=== PATIENT | male | born 1970 | race Caucasian/White ===

== ENCOUNTER 2019-03-08 12:56 | Inpatient (IN) | payer MEDICAID, OTHER ==
[~2019-03-08] VITALS: Ht 177.8 cm; Wt 99.8 kg
[~2019-03-08 12:56] MED LIST: AMBILIFY
[2019-03-08 13:45] LABS: BASOPHILS % (AUTO) 1.3 % (0.0-2.0); EOSINOPHILS % (AUTO) 1.8 % (1.0-6.0); HEMATOCRIT 40.8 % (41-53); LYMPHOCYTES # (AUTO) 2.9 K/uL (1.0-4.8); LYMPHOCYTES % (AUTO) 22.8 % (22.0-44.0); MEAN CORPUSCULAR HEMOGLOBIN 27.9 pg (26.0-34.0); MEAN CORPUSCULAR HGB CONC 34.2 G/dL (31.0-37.0); MEAN CORPUSCULAR VOLUME 81 fL (80-100); MONOCYTES # (AUTO) 1.2 K/uL (0.1-1.0); MONOCYTES % (AUTO) 9.3 % (2.0-9.0); NEUTROPHILS # (AUTO) 8.3 K/uL (1.8-7.7); NEUTROPHILS % (AUTO) 64.8 % (40.0-70.0); PLATELET COUNT (AUTO) 559 K/uL (150-450); RED BLOOD CELL COUNT(AUTO) 5.01 MIL/uL (4.50-5.90); RED CELL DISTRIBUTION WIDTH 13.6 % (11.5-14.5)
[2019-03-08] MEDS ORDERED: HALOPERIDOL 5 MG TABLET PO ONE (13:45)
[2019-03-08 13:53] LABS: ANION GAP 13 mmol/L (8-16); CARBON DIOXIDE 23 mmol/L (22-29); CHLORIDE 101 mmol/L (98-107); CREATININE 0.78 mg/dL (0.60-1.30); GLOMERULAR FILTR. RATE CALC > 60 mL/min (>60); GLUCOSE,RANDOM 106 mg/dL (70-110); POTASSIUM 3.4 mmol/L (3.5-5.1); SODIUM SERUM 137 mmol/L (136-145); UREA NITROGEN, BLOOD 9 mg/dL (7-18)
[2019-03-08 13:59] LABS: ALANINE AMINOTRANSFERASE 39 U/L (12-78); ALBUMIN 4.1 g/dL (3.4-5.0); ALKALINE PHOSPHATASE 54 U/L (46-116); ASPARTATE AMINOTRANSFERASE 19 U/L (15-37); BILIRUBIN,TOTAL 0.8 mg/dL (0.1-1.0); TOTAL PROTEIN, SERUM 7.9 g/dL (6.4-8.2)
[2019-03-08] MEDS ORDERED: IBUPROFEN 400 MG TABLET PO PRN ×2 (15:00→21:15)
[2019-03-08] MEDS ORDERED: HALOPERIDOL 5 MG TABLET PO PRN (15:00)
[2019-03-08] MEDS ORDERED: ZOLPIDEM TARTRATE 10 MG TABLET PO PRN (15:00)
[2019-03-08] MEDS ORDERED: ACETAMINOPHEN 325 MG TABLET PO PRN (15:00)
[2019-03-08] MEDS ORDERED: LORazepam 2 MG TABLET PO PRN (15:00)
[2019-03-08 17:42] LABS: AMPHET/METH SCREEN,URINE NEGATIVE (NEGATIVE); BARBITURATE SCREEN, URINE NEGATIVE (NEGATIVE); BENZODIAZEPINES SCREEN,URINE NEGATIVE (NEGATIVE); CANNABINOID SCREEN,URINE NEGATIVE (NEGATIVE); COCAINE SCREEN,URINE NEGATIVE (NEGATIVE); METHADONE SCREEN, URINE NEGATIVE (NEGATIVE); OPIATE SCREEN,URINE NEGATIVE (NEGATIVE)
[2019-03-08 17:49] LABS: PHENCYCLIDINE SCREEN,URINE NEGATIVE (NEGATIVE)
[2019-03-08 18:57] VITALS: BP 117/77
[2019-03-08] MEDS ORDERED: ONDANSETRON HCL 4 MG TABLET PO PRN (21:15)
[2019-03-08] MEDS ORDERED: ALBUTEROL SULFATE HFA 90 MCG/PUFF 8 GM INHALER IH PRN (21:15)
[2019-03-08] MEDS ORDERED: CloNIDine HCL 0.1 MG TABLET PO PRN (21:15)
[2019-03-08] MEDS ORDERED: DOCUSATE SODIUM 100 MG CAPSULE PO PRN (21:15)
[2019-03-08] MEDS ORDERED: NICOTINE 14 MG/24 HOUR PATCH TD PRN (21:15)
[2019-03-08] MEDS ORDERED: PETROLATUM,WHITE 28 GM JELLY TP PRN (21:15)
[2019-03-08] MEDS ORDERED: GuaiFENesin/D-METHORPHAN [SUGAR-FREE] 200-20MG/10 ML SYRUP UDCUP PO PRN (21:15)
[2019-03-08] MEDS ORDERED: LOPERAMIDE HCL 2 MG CAPSULE PO PRN (21:15)
[2019-03-08] MEDS ORDERED: MAGNESIUM HYDROXIDE SUSPENSION 30 ML UDCUP PO PRN (21:15)
[2019-03-08] MEDS ORDERED: MAG HYDROX/AL HYDROX/SIMETH ES 30 ML SUSPENSION UDCUP PO PRN (21:15)
[2019-03-09 05:35] VITALS: BP 124/85
[2019-03-09 08:08] LABS: BASOPHILS % (AUTO) 1.3 % (0.0-2.0); EOSINOPHILS % (AUTO) 4.8 % (1.0-6.0); HEMATOCRIT 38.7 % (41-53); HEMOGLOBIN 13.3 g/dL (13.5-17.5); LYMPHOCYTES # (AUTO) 3.2 K/uL (1.0-4.8); MEAN CORPUSCULAR HEMOGLOBIN 27.9 pg (26.0-34.0); MEAN CORPUSCULAR HGB CONC 34.3 G/dL (31.0-37.0); MEAN CORPUSCULAR VOLUME 82 fL (80-100); MONOCYTES # (AUTO) 1.2 K/uL (0.1-1.0); MONOCYTES % (AUTO) 10.4 % (2.0-9.0); NEUTROPHILS # (AUTO) 6.6 K/uL (1.8-7.7); NEUTROPHILS % (AUTO) 56.5 % (40.0-70.0); PLATELET COUNT (AUTO) 542 K/uL (150-450); RED BLOOD CELL COUNT(AUTO) 4.75 MIL/uL (4.50-5.90); RED CELL DISTRIBUTION WIDTH 13.8 % (11.5-14.5)
[2019-03-09 08:30] VITALS: BP 124/74
[2019-03-09 08:33] LABS: HEMOGLOBIN A1C 5.4 % (4.5-6.2)
[2019-03-09 08:48] LABS: ALANINE AMINOTRANSFERASE 33 U/L (12-78); ALBUMIN 3.8 g/dL (3.4-5.0); ALKALINE PHOSPHATASE 46 U/L (46-116); ANION GAP 10 mmol/L (8-16); ASPARTATE AMINOTRANSFERASE 15 U/L (15-37); BILIRUBIN,TOTAL 0.8 mg/dL (0.1-1.0); CALCIUM, TOTAL 9.1 mg/dL (8.8-10.5); CARBON DIOXIDE 27 mmol/L (22-29); CHLORIDE 103 mmol/L (98-107); CHOL/HDL RATIO 3.5 (4.2-7.3); CHOLESTEROL 129 mg/dL (131-200); CREATININE 0.82 mg/dL (0.60-1.30); GLOMERULAR FILTR. RATE CALC > 60 mL/min (>60); GLUCOSE,RANDOM 93 mg/dL (70-110); HDL CHOLESTEROL 37 mg/dL (40-60); LDL CHOL (CALC.) 79 mg/dL (0-130); POTASSIUM 3.8 mmol/L (3.5-5.1); SODIUM SERUM 140 mmol/L (136-145); THYROID STIMULATING HORMONE 1.92 uIU/mL (0.36-3.74); TOTAL PROTEIN, SERUM 6.8 g/dL (6.4-8.2); TRIGLYCERIDES 66 mg/dL (15-150); UREA NITROGEN, BLOOD 8 mg/dL (7-18)
[2019-03-09 16:00] VITALS: BP 122/79
[2019-03-09] MEDS: RisperiDONE 2 MG TABLET PO SCH (17:01)
[2019-03-10 01:50] VITALS: BP 123/75
[2019-03-10 08:19] VITALS: BP 125/73
[2019-03-10] MEDS: RisperiDONE 2 MG TABLET PO SCH ×2 (08:55→16:01)
[2019-03-10 16:16] VITALS: BP 118/70
[2019-03-11 08:22] VITALS: BP 140/72
[2019-03-11] MEDS: RisperiDONE 2 MG TABLET PO SCH (09:02)
[2019-03-11 16:30] VITALS: BP 128/75
[2019-03-11] MEDS: RisperiDONE 4 MG TABLET PO SCH (20:25)
[2019-03-12 08:00] VITALS: BP 131/77
[2019-03-12] MEDS: RisperiDONE 2 MG TABLET PO SCH (09:10)
[2019-03-12 16:00] VITALS: BP 118/78
[2019-03-12] MEDS: RisperiDONE 4 MG TABLET PO SCH (20:21)
[2019-03-13 00:54] VITALS: BP 121/75
[2019-03-13 08:30] VITALS: BP 118/68
[2019-03-13] MEDS: RisperiDONE 2 MG TABLET PO SCH (09:45)
[2019-03-13 16:55] VITALS: BP 115/73
[2019-03-13] MEDS: RisperiDONE 4 MG TABLET PO SCH (20:26)
[2019-03-14 08:10] LABS: BASOPHILS % (AUTO) 0.9 % (0.0-2.0); HEMATOCRIT 37.1 % (41-53); HEMOGLOBIN 12.8 g/dL (13.5-17.5); LYMPHOCYTES # (AUTO) 3.6 K/uL (1.0-4.8); LYMPHOCYTES % (AUTO) 25.9 % (22.0-44.0); MEAN CORPUSCULAR HEMOGLOBIN 28.6 pg (26.0-34.0); MEAN CORPUSCULAR HGB CONC 34.6 G/dL (31.0-37.0); MEAN CORPUSCULAR VOLUME 83 fL (80-100); MONOCYTES # (AUTO) 1.1 K/uL (0.1-1.0); MONOCYTES % (AUTO) 8.1 % (2.0-9.0); NEUTROPHILS # (AUTO) 8.4 K/uL (1.8-7.7); NEUTROPHILS % (AUTO) 60.1 % (40.0-70.0); PLATELET COUNT (AUTO) 516 K/uL (150-450); RED BLOOD CELL COUNT(AUTO) 4.49 MIL/uL (4.50-5.90); RED CELL DISTRIBUTION WIDTH 13.9 % (11.5-14.5)
[2019-03-14] MEDS: RisperiDONE 2 MG TABLET PO SCH (09:08)
[2019-03-14 10:39] VITALS: BP 109/68
[2019-03-14 16:00] VITALS: BP 139/80
[2019-03-14] MEDS: RisperiDONE 4 MG TABLET PO SCH (20:37)
[2019-03-15 08:22] VITALS: BP 118/73
[2019-03-15] MEDS: MULTIVITAMINS WITH MINERALS, THERAPEUTIC TABLET PO SCH (09:16)
[2019-03-15] MEDS: RisperiDONE 2 MG TABLET PO SCH (09:16)
[2019-03-15] MEDS ORDERED: RISP4 PO (11:21)
[2019-03-15] MEDS ORDERED: RISP2 PO (11:21)
[2019-03-15 16:00] VITALS: BP 120/66
[2019-03-15] MEDS: RisperiDONE 4 MG TABLET PO SCH (20:16)
[2019-03-16 06:04] VITALS: BP 132/78
[2019-03-16] MEDS: RisperiDONE 2 MG TABLET PO SCH (08:34)
[2019-03-16] MEDS: MULTIVITAMINS WITH MINERALS, THERAPEUTIC TABLET PO SCH (08:34)
[2019-03-16 08:36] VITALS: BP 121/69
[2019-03-16 16:13] VITALS: BP 122/75
[2019-03-16] MEDS: RisperiDONE 4 MG TABLET PO SCH (21:21)
[2019-03-17 03:32] VITALS: BP 116/71
[2019-03-17] MEDS: FERROUS SULFATE 325 MG EC TABLET PO SCH ×3 (07:11→16:09)
[2019-03-17] MEDS: RisperiDONE 2 MG TABLET PO SCH (08:32)
[2019-03-17] MEDS: MULTIVITAMINS WITH MINERALS, THERAPEUTIC TABLET PO SCH (08:32)
[2019-03-17 08:52] VITALS: BP 137/79
[2019-03-17 16:24] VITALS: BP 113/70
[2019-03-17] MEDS: RisperiDONE 4 MG TABLET PO SCH (20:14)
[2019-03-18 01:32] VITALS: BP 123/70
[2019-03-18] MEDS: FERROUS SULFATE 325 MG EC TABLET PO SCH ×3 (07:08→16:13)
[2019-03-18 07:52] LABS: EOSINOPHILS % (AUTO) 5.4 % (1.0-6.0); HEMATOCRIT 37.1 % (41-53); HEMOGLOBIN 12.5 g/dL (13.5-17.5); LYMPHOCYTES # (AUTO) 3.8 K/uL (1.0-4.8); MEAN CORPUSCULAR HGB CONC 33.6 G/dL (31.0-37.0); MEAN CORPUSCULAR VOLUME 83 fL (80-100); MONOCYTES # (AUTO) 1.5 K/uL (0.1-1.0); MONOCYTES % (AUTO) 10.2 % (2.0-9.0); NEUTROPHILS # (AUTO) 8.5 K/uL (1.8-7.7); NEUTROPHILS % (AUTO) 57.4 % (40.0-70.0); PLATELET COUNT (AUTO) 490 K/uL (150-450); RED BLOOD CELL COUNT(AUTO) 4.45 MIL/uL (4.50-5.90); RED CELL DISTRIBUTION WIDTH 13.9 % (11.5-14.5)
[2019-03-18] MEDS: RisperiDONE 2 MG TABLET PO SCH (08:32)
[2019-03-18] MEDS: MULTIVITAMINS WITH MINERALS, THERAPEUTIC TABLET PO SCH (08:32)
[2019-03-18 08:46] VITALS: BP 125/75
[2019-03-18 16:12] VITALS: BP 115/68
[2019-03-18] MEDS: RisperiDONE 4 MG TABLET PO SCH (21:05)
[2019-03-19 00:22] VITALS: BP 116/74
[2019-03-19] MEDS: ACETAMINOPHEN 325 MG TABLET PO PRN (05:49)
[2019-03-19] MEDS: FERROUS SULFATE 325 MG EC TABLET PO SCH ×3 (06:57→16:57)
[2019-03-19 08:17] LABS: APPEARANCE,URINE CLEAR (CLEAR); BILIRUBIN,URINE NEGATIVE (NEGATIVE); GLUCOSE, URINE (UA) NEGATIVE (NEGATIVE); KETONES,URINE NEGATIVE (NEGATIVE); LEUKOCYTE ESTERASE ,URINE NEGATIVE (NEGATIVE); NITRATE,URINE NEGATIVE (NEGATIVE); OCCULT BLOOD,URINE NEGATIVE (NEGATIVE); PROTEIN,URINE NEGATIVE (NEGATIVE); UROBILINOGEN,URINE 0.2 mg/dL (<=1.0)
[2019-03-19 09:07] VITALS: BP 134/74
[2019-03-19] MEDS: MULTIVITAMINS WITH MINERALS, THERAPEUTIC TABLET PO SCH (09:17)
[2019-03-19] MEDS: RisperiDONE 2 MG TABLET PO SCH (09:17)
[2019-03-19 16:09] VITALS: BP 106/64
[2019-03-19] MEDS: RisperiDONE 4 MG TABLET PO SCH (20:31)
[2019-03-20 00:05] VITALS: BP 134/84
[2019-03-20] MEDS: ACETAMINOPHEN 325 MG TABLET PO PRN (00:09)
[2019-03-20] MEDS: FERROUS SULFATE 325 MG EC TABLET PO SCH ×2 (07:04→12:05)
[2019-03-20 08:13] VITALS: BP 112/72
[2019-03-20] MEDS: MULTIVITAMINS WITH MINERALS, THERAPEUTIC TABLET PO SCH (09:15)
[2019-03-20] MEDS: RisperiDONE 2 MG TABLET PO SCH (09:15)
[2019-03-20] MEDS ORDERED: FERR-89 PO (10:48)
== END 2019-03-20 15:20 | disposition home or self-care (01) | DRG 750 ==
LOC: EMS 12:58 → B3A 16:22 → B2S 03-16 16:54
PROVIDERS: ADMIT Psychiatry & Neurology Child & Adolescent Psychiatry; ATTEND Psychiatry & Neurology Child & Adolescent Psychiatry
DX: F20.0 Paranoid schizophrenia (principal); Z59.0 Homelessness; D64.9 Anemia, unspecified; D72.829 Elevated white blood cell count, unspecified; E87.6 Hypokalemia; F41.9 Anxiety disorder, unspecified; R45.87 Impulsiveness; R41.843 Psychomotor deficit; Z88.0 Allergy status to penicillin
CPT/HCPCS: 83036; 84443; G0480

== ENCOUNTER 2022-04-27 17:24 | Inpatient (IN) | payer MEDICARE, OTHER ==
[~2022-04-27] VITALS: Ht 172.7 cm; Wt 99.6 kg
[~2022-04-27 17:24] MED LIST changes: -AMBILIFY; +FERR325T27 PO; +RISP2TAB45 PO; +RISP4TAB73 PO
[2022-04-27 18:04] LABS: BASOPHILS % (AUTO) 0.9 % (0.0-2.0); EOSINOPHILS % (AUTO) 0.1 % (1.0-6.0); HEMATOCRIT 43.2 % (41-53); HEMOGLOBIN 14.2 g/dL (13.5-17.5); LYMPHOCYTES # (AUTO) 1.8 K/uL (1.0-4.8); LYMPHOCYTES % (AUTO) 7.3 % (22.0-44.0); MEAN CORPUSCULAR HEMOGLOBIN 27.4 pg (26.0-34.0); MEAN CORPUSCULAR HGB CONC 32.9 G/dL (31.0-37.0); MEAN CORPUSCULAR VOLUME 83 fL (80-100); MONOCYTES # (AUTO) 2.6 K/uL (0.1-1.0); MONOCYTES % (AUTO) 10.3 % (2.0-9.0); NEUTROPHILS # (AUTO) 20.4 K/uL (1.8-7.7); NEUTROPHILS % (AUTO) 81.4 % (40.0-70.0); PLATELET COUNT (AUTO) 426 K/uL (150-450); RED CELL DISTRIBUTION WIDTH 13.4 % (11.5-14.5)
[2022-04-27 18:10] LABS: ANION GAP 17 mmol/L (8-16); CALCIUM, TOTAL 9.2 mg/dL (8.8-10.5); CARBON DIOXIDE 21 mmol/L (22-29); CHLORIDE 101 mmol/L (98-107); CREATININE 2.55 mg/dL (0.60-1.30); GLOMERULAR FILTR. RATE CALC 26 mL/min (>60); GLUCOSE,RANDOM 95 mg/dL (70-110); POTASSIUM 3.3 mmol/L (3.5-5.1); SODIUM SERUM 139 mmol/L (136-145); UREA NITROGEN, BLOOD 61 mg/dL (7-18)
[2022-04-27 18:34] LABS: ALANINE AMINOTRANSFERASE 57 U/L (12-78); ALBUMIN 4.5 g/dL (3.4-5.0); ALKALINE PHOSPHATASE 46 U/L (46-116); ASPARTATE AMINOTRANSFERASE 119 U/L (15-37); BILIRUBIN,TOTAL 2.2 mg/dL (0.1-1.0); CREATINE KINASE, TOTAL ONLY 3886 U/L (39-308); TOTAL PROTEIN, SERUM 8.2 g/dL (6.4-8.2)
[2022-04-27] MEDS ORDERED: SODIUM CHLORIDE 0.9% 1,000 ML IV ONE (19:30)
[2022-04-27 20:30] VITALS: BP 131/77
[2022-04-27] MEDS ORDERED: CefTRIAXone 1 GM/DEXTROSE 50 ML IV ONE (20:45)
[2022-04-27] MEDS ORDERED: ONDANSETRON HCL 4 MG/2 ML VIAL IVP PRN (20:45)
[2022-04-27] MEDS ORDERED: SODIUM CHLORIDE 0.9% 3,050 ML IV ONE (20:45)
[2022-04-27 22:06] LABS: COVID AG,FIA SOURCE NASOPHARYNGEAL
[2022-04-27 22:22] LABS: CREATININE,URINE RANDOM 261.1 mg/dL (30.0-125.0)
[2022-04-27 22:27] LABS: AMPHET/METH SCREEN,URINE NEGATIVE (NEGATIVE); BARBITURATE SCREEN, URINE NEGATIVE (NEGATIVE); BENZODIAZEPINES SCREEN,URINE NEGATIVE (NEGATIVE); CANNABINOID SCREEN,URINE NEGATIVE (NEGATIVE); COCAINE SCREEN,URINE NEGATIVE (NEGATIVE); METHADONE SCREEN, URINE NEGATIVE (NEGATIVE); OPIATE SCREEN,URINE NEGATIVE (NEGATIVE)
[2022-04-27 22:29] LABS: PHENCYCLIDINE SCREEN,URINE NEGATIVE (NEGATIVE)
[2022-04-28 00:40] VITALS: BP 125/72
[2022-04-28] MEDS: HEPARIN SODIUM,PORCINE 5,000 UNITS/ML VIAL SQ SCH ×3 (00:47→15:25)
[2022-04-28] MEDS: SODIUM CHLORIDE 0.9% 1,000 ML IV SCH ×3 (04:04→19:53)
[2022-04-28 04:35] VITALS: BP 132/81
[2022-04-28] MEDS ORDERED: LevETIRAcetam 1,000 MG in DEXTROSE 5%-WATER 100 ML IV ONE (06:00)
[2022-04-28 06:35] LABS: BASOPHILS % (AUTO) 0.9 % (0.0-2.0); EOSINOPHILS % (AUTO) 0.3 % (1.0-6.0); HEMATOCRIT 39.6 % (41-53); HEMOGLOBIN 13.3 g/dL (13.5-17.5); LYMPHOCYTES # (AUTO) 2.7 K/uL (1.0-4.8); LYMPHOCYTES % (AUTO) 13.8 % (22.0-44.0); MEAN CORPUSCULAR HGB CONC 33.7 G/dL (31.0-37.0); MEAN CORPUSCULAR VOLUME 83 fL (80-100); MONOCYTES % (AUTO) 10.4 % (2.0-9.0); NEUTROPHILS # (AUTO) 14.4 K/uL (1.8-7.7); NEUTROPHILS % (AUTO) 74.6 % (40.0-70.0); PLATELET COUNT (AUTO) 411 K/uL (150-450); RED BLOOD CELL COUNT(AUTO) 4.77 MIL/uL (4.50-5.90); RED CELL DISTRIBUTION WIDTH 13.5 % (11.5-14.5)
[2022-04-28] MEDS: CefTRIAXone 1 GM/DEXTROSE 50 ML IV SCH (07:03)
[2022-04-28 07:15] LABS: ANION GAP 12 mmol/L (8-16); CALCIUM, TOTAL 8.5 mg/dL (8.8-10.5); CARBON DIOXIDE 25 mmol/L (22-29); CHLORIDE 106 mmol/L (98-107); CREATININE 1.12 mg/dL (0.60-1.30); GLUCOSE,RANDOM 97 mg/dL (70-110); POTASSIUM 3.4 mmol/L (3.5-5.1); SODIUM SERUM 143 mmol/L (136-145); UREA NITROGEN, BLOOD 43 mg/dL (7-18)
[2022-04-28 07:18] LABS: CREATINE KINASE, TOTAL ONLY 1495 U/L (39-308); GLOMERULAR FILTR. RATE CALC > 60 mL/min (>60)
[2022-04-28 07:22] VITALS: BP 129/76
[2022-04-28 11:42] VITALS: BP 122/78
[2022-04-28 15:30] VITALS: BP 139/69
[2022-04-28 20:07] VITALS: BP 136/82
[2022-04-28] MEDS: LevETIRAcetam 500 MG in DEXTROSE 5%-WATER 100 ML IV SCH (20:35)
[2022-04-29 00:10] VITALS: BP 146/89
[2022-04-29] MEDS: HEPARIN SODIUM,PORCINE 5,000 UNITS/ML VIAL SQ SCH ×4 (00:23→23:37)
[2022-04-29 04:22] VITALS: BP 133/76
[2022-04-29] MEDS: SODIUM CHLORIDE 0.9% 1,000 ML IV SCH ×2 (04:53→15:40)
[2022-04-29] MEDS: CefTRIAXone 1 GM/DEXTROSE 50 ML IV SCH (05:56)
[2022-04-29 06:20] LABS: EOSINOPHILS % (AUTO) 0.8 % (1.0-6.0); HEMATOCRIT 38.6 % (41-53); LYMPHOCYTES # (AUTO) 2.6 K/uL (1.0-4.8); LYMPHOCYTES % (AUTO) 16.4 % (22.0-44.0); MEAN CORPUSCULAR HEMOGLOBIN 27.9 pg (26.0-34.0); MEAN CORPUSCULAR HGB CONC 33.6 G/dL (31.0-37.0); MEAN CORPUSCULAR VOLUME 83 fL (80-100); MONOCYTES # (AUTO) 1.9 K/uL (0.1-1.0); MONOCYTES % (AUTO) 11.8 % (2.0-9.0); NEUTROPHILS # (AUTO) 11.2 K/uL (1.8-7.7); PLATELET COUNT (AUTO) 416 K/uL (150-450); RED BLOOD CELL COUNT(AUTO) 4.65 MIL/uL (4.50-5.90); RED CELL DISTRIBUTION WIDTH 13.3 % (11.5-14.5)
[2022-04-29 06:50] LABS: ANION GAP 11 mmol/L (8-16); CALCIUM, TOTAL 8.2 mg/dL (8.8-10.5); CARBON DIOXIDE 26 mmol/L (22-29); CHLORIDE 108 mmol/L (98-107); CREATININE 0.75 mg/dL (0.60-1.30); GLUCOSE,RANDOM 80 mg/dL (70-110); POTASSIUM 3.1 mmol/L (3.5-5.1); SODIUM SERUM 145 mmol/L (136-145)
[2022-04-29 07:04] LABS: UREA NITROGEN, BLOOD 22 mg/dL (7-18)
[2022-04-29 07:05] LABS: GLOMERULAR FILTR. RATE CALC > 60 mL/min (>60)
[2022-04-29 07:43] VITALS: BP 132/80
[2022-04-29] MEDS: LevETIRAcetam 500 MG in DEXTROSE 5%-WATER 100 ML IV SCH ×2 (08:42→19:58)
[2022-04-29 10:45] VITALS: BP 142/74
[2022-04-29] MEDS ORDERED: METR500 PO (12:04)
[2022-04-29] MEDS ORDERED: CIPR500T10 PO (12:04)
[2022-04-29] MEDS ORDERED: LEVE500T20 PO (12:04)
[2022-04-29 12:19] LABS: PLATELET MORPHOLOGY COMMENT GIANT PLTS PRESENT
[2022-04-29 15:20] VITALS: BP 142/72
[2022-04-29] MEDS: ACETAMINOPHEN 325 MG TABLET PO PRN (19:59)
[2022-04-29 20:00] VITALS: BP 128/72
[2022-04-29] MEDS ORDERED: ACETAMINOPHEN 650 MG RECTAL SUPPOSITORY PR PRN (22:30)
[2022-04-30] MEDS: SODIUM CHLORIDE 0.9% 1,000 ML IV SCH ×2 (03:36→20:02)
[2022-04-30 04:10] VITALS: BP 149/79
[2022-04-30] MEDS: CefTRIAXone 1 GM/DEXTROSE 50 ML IV SCH (05:22)
[2022-04-30] MEDS: ACETAMINOPHEN 325 MG TABLET PO PRN (06:04)
[2022-04-30 06:12] LABS: BASOPHILS % (AUTO) 0.9 % (0.0-2.0); EOSINOPHILS % (AUTO) 2.1 % (1.0-6.0); HEMATOCRIT 38.5 % (41-53); HEMOGLOBIN 13.1 g/dL (13.5-17.5); LYMPHOCYTES # (AUTO) 3.3 K/uL (1.0-4.8); LYMPHOCYTES % (AUTO) 22.3 % (22.0-44.0); MEAN CORPUSCULAR VOLUME 83 fL (80-100); MONOCYTES # (AUTO) 1.8 K/uL (0.1-1.0); MONOCYTES % (AUTO) 12.4 % (2.0-9.0); NEUTROPHILS # (AUTO) 9.1 K/uL (1.8-7.7); NEUTROPHILS % (AUTO) 62.3 % (40.0-70.0); PLATELET COUNT (AUTO) 375 K/uL (150-450); RED BLOOD CELL COUNT(AUTO) 4.67 MIL/uL (4.50-5.90); RED CELL DISTRIBUTION WIDTH 13.4 % (11.5-14.5)
[2022-04-30 06:18] LABS: ANION GAP 9 mmol/L (8-16); CALCIUM, TOTAL 8.2 mg/dL (8.8-10.5); CARBON DIOXIDE 27 mmol/L (22-29); CHLORIDE 105 mmol/L (98-107); CREATININE 0.68 mg/dL (0.60-1.30); GLUCOSE,RANDOM 86 mg/dL (70-110); SODIUM SERUM 141 mmol/L (136-145); UREA NITROGEN, BLOOD 14 mg/dL (7-18)
[2022-04-30 06:24] LABS: GLOMERULAR FILTR. RATE CALC > 60 mL/min (>60)
[2022-04-30 08:29] VITALS: BP 136/99
[2022-04-30] MEDS ORDERED: POTASSIUM CHLORIDE 20 MEQ ER TABLET PO PRN (09:00)
[2022-04-30] MEDS: LevETIRAcetam 500 MG in DEXTROSE 5%-WATER 100 ML IV SCH (09:22)
[2022-04-30] MEDS: HEPARIN SODIUM,PORCINE 5,000 UNITS/ML VIAL SQ SCH ×2 (09:22→15:19)
[2022-04-30] MEDS ORDERED: SODIUM CHLORIDE 0.9% 250 ML IV ONE (09:36)
[2022-04-30] MEDS: POTASSIUM CHL 10 MEQ/WATER 50 ML IV PRN ×4 (09:37→14:42)
[2022-04-30] MEDS ORDERED: BISACODYL 10 MG RECTAL RECTAL SUPPOSITORY PR PRN (13:45)
[2022-04-30] MEDS: CLINDAMYCIN 600 MG/D5% WATER 50 ML IV SCH (15:20)
[2022-04-30 15:58] VITALS: BP 141/86
[2022-04-30] MEDS: DOCUSATE SODIUM 100 MG CAPSULE PO SCH (20:04)
[2022-04-30 20:12] VITALS: BP 140/80
[2022-05-01] MEDS: CLINDAMYCIN 600 MG/D5% WATER 50 ML IV SCH ×4 (00:04→23:41)
[2022-05-01] MEDS: HEPARIN SODIUM,PORCINE 5,000 UNITS/ML VIAL SQ SCH ×4 (00:05→23:42)
[2022-05-01] MEDS: CefTRIAXone 1 GM/DEXTROSE 50 ML IV SCH (05:30)
[2022-05-01 06:01] VITALS: BP 132/79
[2022-05-01 06:10] LABS: BASOPHILS % (AUTO) 0.7 % (0.0-2.0); EOSINOPHILS % (AUTO) 2.4 % (1.0-6.0); HEMATOCRIT 40.2 % (41-53); HEMOGLOBIN 13.8 g/dL (13.5-17.5); LYMPHOCYTES # (AUTO) 2.8 K/uL (1.0-4.8); LYMPHOCYTES % (AUTO) 19.1 % (22.0-44.0); MEAN CORPUSCULAR HGB CONC 34.4 G/dL (31.0-37.0); MEAN CORPUSCULAR VOLUME 81 fL (80-100); MONOCYTES # (AUTO) 1.9 K/uL (0.1-1.0); MONOCYTES % (AUTO) 12.5 % (2.0-9.0); NEUTROPHILS # (AUTO) 9.8 K/uL (1.8-7.7); NEUTROPHILS % (AUTO) 65.3 % (40.0-70.0); PLATELET COUNT (AUTO) 356 K/uL (150-450); RED BLOOD CELL COUNT(AUTO) 4.95 MIL/uL (4.50-5.90); RED CELL DISTRIBUTION WIDTH 13.3 % (11.5-14.5)
[2022-05-01 06:22] LABS: ANION GAP 8 mmol/L (8-16); CALCIUM, TOTAL 8.5 mg/dL (8.8-10.5); CARBON DIOXIDE 25 mmol/L (22-29); CHLORIDE 102 mmol/L (98-107); CREATININE 0.67 mg/dL (0.60-1.30); GLUCOSE,RANDOM 92 mg/dL (70-110); POTASSIUM 3.5 mmol/L (3.5-5.1); SODIUM SERUM 135 mmol/L (136-145); UREA NITROGEN, BLOOD 9 mg/dL (7-18)
[2022-05-01 06:32] LABS: GLOMERULAR FILTR. RATE CALC > 60 mL/min (>60)
[2022-05-01 07:52] VITALS: BP 138/79
[2022-05-01] MEDS: DOCUSATE SODIUM 100 MG CAPSULE PO SCH ×2 (08:05→20:39)
[2022-05-01] MEDS: SODIUM CHLORIDE 0.9% 1,000 ML IV SCH ×2 (08:14→18:05)
[2022-05-01] MEDS ORDERED: MORPHINE SULFATE 2 MG/ML SYRINGE IVP PRN (12:30)
[2022-05-01 15:39] VITALS: BP 141/77
[2022-05-01 19:50] VITALS: BP 134/82
[2022-05-01] MEDS: MAALOX/LIDOCAINE/NYSTATIN SUSP 5 ML ORAL.SYG PO SCH (20:39)
[2022-05-02] MEDS: SODIUM CHLORIDE 0.9% 1,000 ML IV SCH ×2 (03:30→15:21)
[2022-05-02 04:15] VITALS: BP 143/84
[2022-05-02] MEDS: CefTRIAXone 1 GM/DEXTROSE 50 ML IV SCH (05:54)
[2022-05-02] MEDS: CLINDAMYCIN 600 MG/D5% WATER 50 ML IV SCH ×3 (06:53→23:21)
[2022-05-02 08:17] VITALS: BP 132/74
[2022-05-02] MEDS: MAALOX/LIDOCAINE/NYSTATIN SUSP 5 ML ORAL.SYG PO SCH ×2 (08:27→21:00)
[2022-05-02] MEDS: HEPARIN SODIUM,PORCINE 5,000 UNITS/ML VIAL SQ SCH ×3 (08:27→23:21)
[2022-05-02] MEDS: DOCUSATE SODIUM 100 MG CAPSULE PO SCH ×2 (08:27→21:00)
[2022-05-02 15:33] VITALS: BP 140/78
[2022-05-02 19:37] VITALS: BP 148/79
[2022-05-02] MEDS: FLUoxetine HCL 20 MG CAPSULE PO SCH (21:00)
[2022-05-02 21:08] VITALS: BP 141/80
[2022-05-03] MEDS: SODIUM CHLORIDE 0.9% 1,000 ML IV SCH ×2 (02:22→12:33)
[2022-05-03 05:25] VITALS: BP 141/76
[2022-05-03] MEDS: CefTRIAXone 1 GM/DEXTROSE 50 ML IV SCH (05:52)
[2022-05-03] MEDS: CLINDAMYCIN 600 MG/D5% WATER 50 ML IV SCH ×3 (06:35→23:07)
[2022-05-03] MEDS: DOCUSATE SODIUM 100 MG CAPSULE PO SCH ×2 (08:08→20:57)
[2022-05-03] MEDS: MAALOX/LIDOCAINE/NYSTATIN SUSP 5 ML ORAL.SYG PO SCH ×2 (08:08→20:57)
[2022-05-03] MEDS: HEPARIN SODIUM,PORCINE 5,000 UNITS/ML VIAL SQ SCH ×3 (08:27→23:07)
[2022-05-03 08:32] VITALS: BP 141/83
[2022-05-03] MEDS: ASPIRIN 81 MG CHEWABLE TABLET PO SCH (13:00)
[2022-05-03 14:44] LABS: CHOL/HDL RATIO 3.4 (4.2-7.3)
[2022-05-03 16:27] VITALS: BP 127/76
[2022-05-03 19:27] VITALS: BP 140/80
[2022-05-03] MEDS: FLUoxetine HCL 20 MG CAPSULE PO SCH (20:57)
[2022-05-03] MEDS: ATORVASTATIN CALCIUM 20 MG TABLET PO SCH (20:57)
[2022-05-04] MEDS: SODIUM CHLORIDE 0.9% 1,000 ML IV SCH ×3 (04:20→17:40)
[2022-05-04 04:22] VITALS: BP 146/82
[2022-05-04] MEDS: CefTRIAXone 1 GM/DEXTROSE 50 ML IV SCH (05:25)
[2022-05-04] MEDS: CLINDAMYCIN 600 MG/D5% WATER 50 ML IV SCH ×3 (06:29→23:33)
[2022-05-04 07:49] VITALS: BP 140/18
[2022-05-04] MEDS: ASPIRIN 81 MG CHEWABLE TABLET PO SCH (08:00)
[2022-05-04] MEDS: DOCUSATE SODIUM 100 MG CAPSULE PO SCH ×2 (09:00→21:00)
[2022-05-04] MEDS: MAALOX/LIDOCAINE/NYSTATIN SUSP 5 ML ORAL.SYG PO SCH ×2 (09:00→21:00)
[2022-05-04] MEDS: HEPARIN SODIUM,PORCINE 5,000 UNITS/ML VIAL SQ SCH ×3 (09:54→23:33)
[2022-05-04 16:04] VITALS: BP 145/76
[2022-05-04 20:18] VITALS: BP 138/81
[2022-05-04] MEDS: ATORVASTATIN CALCIUM 20 MG TABLET PO SCH (21:00)
[2022-05-04] MEDS: FLUoxetine HCL 20 MG CAPSULE PO SCH (21:00)
[2022-05-05] MEDS: SODIUM CHLORIDE 0.9% 1,000 ML IV SCH ×3 (04:24→23:28)
[2022-05-05] MEDS ORDERED: RINGERS SOLUTION,LACTATED 1,000 ML IV ONE (05:30)
[2022-05-05] MEDS: CefTRIAXone 1 GM/DEXTROSE 50 ML IV SCH (05:42)
[2022-05-05 06:42] LABS: BASOPHILS % (AUTO) 0.7 % (0.0-2.0); EOSINOPHILS % (AUTO) 3.6 % (1.0-6.0); HEMOGLOBIN 14.8 g/dL (13.5-17.5); LYMPHOCYTES # (AUTO) 2.6 K/uL (1.0-4.8); LYMPHOCYTES % (AUTO) 13.8 % (22.0-44.0); MEAN CORPUSCULAR HEMOGLOBIN 28.2 pg (26.0-34.0); MEAN CORPUSCULAR HGB CONC 33.6 G/dL (31.0-37.0); MEAN CORPUSCULAR VOLUME 84 fL (80-100); MONOCYTES # (AUTO) 2.5 K/uL (0.1-1.0); MONOCYTES % (AUTO) 13.1 % (2.0-9.0); NEUTROPHILS # (AUTO) 13.1 K/uL (1.8-7.7); NEUTROPHILS % (AUTO) 68.8 % (40.0-70.0); RED BLOOD CELL COUNT(AUTO) 5.24 MIL/uL (4.50-5.90); RED CELL DISTRIBUTION WIDTH 13.2 % (11.5-14.5)
[2022-05-05 07:12] LABS: B-TYPE NATRIURETIC PEPTIDE 17 pg/mL (0-100)
[2022-05-05] MEDS ORDERED: FentaNYL CITRATE PF 100 MCG/2 ML VIAL IVP PRN (07:15)
[2022-05-05] MEDS ORDERED: HYDROmorphone HCL 2 MG/ML SYRINGE IVP PRN (07:15)
[2022-05-05] MEDS ORDERED: LEVOFLOXACIN 500 MG TABLET PO ONE (07:15)
[2022-05-05 07:25] LABS: ANION GAP 10 mmol/L (8-16); CALCIUM, TOTAL 8.5 mg/dL (8.8-10.5); CARBON DIOXIDE 24 mmol/L (22-29); CHLORIDE 101 mmol/L (98-107); GLUCOSE,RANDOM 81 mg/dL (70-110); POTASSIUM 4.1 mmol/L (3.5-5.1); SODIUM SERUM 135 mmol/L (136-145); UREA NITROGEN, BLOOD 11 mg/dL (7-18)
[2022-05-05 07:29] LABS: GLOMERULAR FILTR. RATE CALC > 60 mL/min (>60)
[2022-05-05] MEDS ORDERED: LEVOFLOXACIN 500 MG/D5% WATER 100 ML IV SCH (07:30)
[2022-05-05 07:50] LABS: PLATELET COUNT (AUTO) 379 K/uL (150-450)
[2022-05-05] MEDS: ASPIRIN 81 MG CHEWABLE TABLET PO SCH (08:00)
[2022-05-05 08:42] VITALS: BP 132/68
[2022-05-05] MEDS: MAALOX/LIDOCAINE/NYSTATIN SUSP 5 ML ORAL.SYG PO SCH ×2 (09:00→20:33)
[2022-05-05] MEDS: DOCUSATE SODIUM 100 MG CAPSULE PO SCH ×2 (09:00→20:33)
[2022-05-05] MEDS: HEPARIN SODIUM,PORCINE 5,000 UNITS/ML VIAL SQ SCH ×3 (09:58→23:37)
[2022-05-05] MEDS: OXYGEN THERAPY IH SCH ×2 (09:58→20:00)
[2022-05-05 11:15] VITALS: BP 149/77
[2022-05-05] MEDS ORDERED: LIDOCAINE/PF 2% 5 ML VIAL IM ONE (11:20)
[2022-05-05] MEDS ORDERED: PROPOFOL 1% 20 ML VIAL IVP ONE (11:20)
[2022-05-05] MEDS: CLINDAMYCIN 600 MG/D5% WATER 50 ML IV SCH (11:42)
[2022-05-05 15:53] VITALS: BP 149/79
[2022-05-05] MEDS: MetroNIDAZOLE 500 MG TABLET GT SCH ×2 (17:01→23:27)
[2022-05-05 19:16] VITALS: BP 140/78
[2022-05-05] MEDS: ATORVASTATIN CALCIUM 20 MG TABLET PO SCH (20:33)
[2022-05-05] MEDS: FLUoxetine HCL 20 MG CAPSULE PO SCH (21:00)
[2022-05-05 22:19] LABS: APPEARANCE,URINE CLEAR (CLEAR); BILIRUBIN,URINE NEGATIVE (NEGATIVE); GLUCOSE, URINE (UA) TRACE mg/dL (NEGATIVE); KETONES,URINE =>150 mg/dL (NEGATIVE); LEUKOCYTE ESTERASE ,URINE NEGATIVE (NEGATIVE); NITRATE,URINE NEGATIVE (NEGATIVE); OCCULT BLOOD,URINE SMALL (NEGATIVE); PROTEIN,URINE TRACE mg/dL (NEGATIVE); SPECIFIC GRAVITIY, URINE 1.021 (1.003-1.030); UROBILINOGEN,URINE <=1.0 mg/dL (<=1.0)
[2022-05-05 22:43] LABS: BACTERIA,URINE None Seen /HPF (None Seen); WBC,URINE 0-2 /HPF (0-5)
[2022-05-05 22:44] LABS: AMORPHOUS SEDIMENT,UR Few /LPF (None Seen); FINE GRANULAR CASTS,URINE None Seen /LPF (None Seen); SQUAMOUS EPITHELIAL CELL,UR Few /LPF (None Seen)
[2022-05-06] VITALS (8 sets, daily range): BP systolic 119–142; BP diastolic 72–89
[2022-05-06] MEDS: CefTRIAXone 1 GM/DEXTROSE 50 ML IV SCH (05:30)
[2022-05-06 06:32] LABS: ALANINE AMINOTRANSFERASE 37 U/L (12-78); ALBUMIN 2.8 g/dL (3.4-5.0); ALKALINE PHOSPHATASE 70 U/L (46-116); ANION GAP 7 mmol/L (8-16); ASPARTATE AMINOTRANSFERASE 24 U/L (15-37); BILIRUBIN,TOTAL 0.6 mg/dL (0.1-1.0); CALCIUM, TOTAL 8.3 mg/dL (8.8-10.5); CARBON DIOXIDE 26 mmol/L (22-29); CHLORIDE 102 mmol/L (98-107); CREATININE 0.69 mg/dL (0.60-1.30); GLUCOSE,RANDOM 120 mg/dL (70-110); POTASSIUM 3.1 mmol/L (3.5-5.1); SODIUM SERUM 135 mmol/L (136-145); TOTAL PROTEIN, SERUM 6.9 g/dL (6.4-8.2); UREA NITROGEN, BLOOD 9 mg/dL (7-18)
[2022-05-06 06:33] LABS: GLOMERULAR FILTR. RATE CALC > 60 mL/min (>60)
[2022-05-06 06:52] LABS: BASOPHILS % (AUTO) 0.4 % (0.0-2.0); EOSINOPHILS % (AUTO) 4.1 % (1.0-6.0); HEMATOCRIT 40.6 % (41-53); HEMOGLOBIN 13.8 g/dL (13.5-17.5); LYMPHOCYTES # (AUTO) 2.2 K/uL (1.0-4.8); LYMPHOCYTES % (AUTO) 12.8 % (22.0-44.0); MEAN CORPUSCULAR HEMOGLOBIN 27.7 pg (26.0-34.0); MEAN CORPUSCULAR HGB CONC 33.9 G/dL (31.0-37.0); MEAN CORPUSCULAR VOLUME 82 fL (80-100); MONOCYTES % (AUTO) 11.2 % (2.0-9.0); NEUTROPHILS # (AUTO) 12.5 K/uL (1.8-7.7); NEUTROPHILS % (AUTO) 71.5 % (40.0-70.0); PLATELET COUNT (AUTO) 418 K/uL (150-450); RED BLOOD CELL COUNT(AUTO) 4.96 MIL/uL (4.50-5.90); RED CELL DISTRIBUTION WIDTH 13.5 % (11.5-14.5)
[2022-05-06] MEDS: MetroNIDAZOLE 500 MG TABLET GT SCH ×3 (08:50→23:47)
[2022-05-06] MEDS: DOCUSATE SODIUM 100 MG CAPSULE PO SCH ×2 (08:50→20:18)
[2022-05-06] MEDS: ASPIRIN 81 MG CHEWABLE TABLET PO SCH (08:50)
[2022-05-06] MEDS: HEPARIN SODIUM,PORCINE 5,000 UNITS/ML VIAL SQ SCH ×3 (08:51→23:49)
[2022-05-06] MEDS: MAALOX/LIDOCAINE/NYSTATIN SUSP 5 ML ORAL.SYG PO SCH ×2 (08:51→20:59)
[2022-05-06] MEDS: POTASSIUM CHL 10 MEQ/WATER 50 ML IV PRN ×3 (08:52→12:33)
[2022-05-06] MEDS: SODIUM CHLORIDE 0.9% 1,000 ML IV SCH ×2 (09:21→20:17)
[2022-05-06] MEDS: OXYGEN THERAPY IH SCH ×2 (09:59→20:17)
[2022-05-06] MEDS: ATORVASTATIN CALCIUM 20 MG TABLET PO SCH (20:17)
[2022-05-06] MEDS: FLUoxetine HCL 20 MG/5 ML SOLUTION UDCUP PEG SCH (21:03)
[2022-05-07 03:39] VITALS: BP 130/85
[2022-05-07] MEDS: CefTRIAXone 1 GM/DEXTROSE 50 ML IV SCH (05:33)
[2022-05-07 06:00] LABS: EOSINOPHILS % (AUTO) 3.8 % (1.0-6.0); HEMATOCRIT 40.5 % (41-53); HEMOGLOBIN 13.7 g/dL (13.5-17.5); LYMPHOCYTES # (AUTO) 2.4 K/uL (1.0-4.8); LYMPHOCYTES % (AUTO) 15.1 % (22.0-44.0); MEAN CORPUSCULAR HEMOGLOBIN 28.1 pg (26.0-34.0); MEAN CORPUSCULAR VOLUME 83 fL (80-100); MONOCYTES # (AUTO) 1.9 K/uL (0.1-1.0); NEUTROPHILS # (AUTO) 10.8 K/uL (1.8-7.7); NEUTROPHILS % (AUTO) 68.1 % (40.0-70.0); PLATELET COUNT (AUTO) 441 K/uL (150-450); RED CELL DISTRIBUTION WIDTH 13.4 % (11.5-14.5)
[2022-05-07 07:55] VITALS: BP 145/82
[2022-05-07] MEDS: HEPARIN SODIUM,PORCINE 5,000 UNITS/ML VIAL SQ SCH ×2 (08:00→18:22)
[2022-05-07] MEDS: SODIUM CHLORIDE 0.9% 1,000 ML IV SCH ×2 (08:00→20:37)
[2022-05-07] MEDS: OXYGEN THERAPY IH SCH ×2 (08:00→20:00)
[2022-05-07] MEDS: ASPIRIN 81 MG CHEWABLE TABLET PO SCH (08:00)
[2022-05-07] MEDS: MetroNIDAZOLE 500 MG TABLET GT SCH ×2 (08:00→16:00)
[2022-05-07] MEDS ORDERED: LIDOCAINE 2% VISCOUS 15 ML SOLUTION UDCUP ONE (08:10)
[2022-05-07] MEDS ORDERED: FentaNYL CITRATE PF 100 MCG/2 ML VIAL ONE (08:54)
[2022-05-07] MEDS ORDERED: MIDAZOLAM HCL 2 MG/2 ML VIAL ONE ×2 (08:55→09:23)
[2022-05-07] MEDS ORDERED: LIDOCAINE 2% VISCOUS 15 ML SOLUTION UDCUP PO ONE (09:00)
[2022-05-07] MEDS ORDERED: MIDAZOLAM HCL 2 MG/2 ML VIAL IVP ONE ×6 (09:00→09:30)
[2022-05-07] MEDS: DOCUSATE SODIUM 100 MG CAPSULE PO SCH ×2 (09:00→20:35)
[2022-05-07] MEDS: MAALOX/LIDOCAINE/NYSTATIN SUSP 5 ML ORAL.SYG PO SCH ×2 (09:00→20:36)
[2022-05-07] MEDS ORDERED: BENZOCAINE 20% 50 MCG/SPRAY 57 GM ONE (09:02)
[2022-05-07] MEDS ORDERED: FentaNYL CITRATE PF 100 MCG/2 ML VIAL IVP ONE ×3 (09:15→09:30)
[2022-05-07] MEDS ORDERED: BENZOCAINE 20% 50 MCG/SPRAY 57 GM TP ONE (09:15)
[2022-05-07] MEDS: MULTIVITAMINS WITH MINERALS, THERAPEUTIC 15 ML UDCUP PEG SCH (09:45)
[2022-05-07 10:19] VITALS: BP 138/79
[2022-05-07 10:25] LABS: MAGNESIUM 1.9 mg/dL (1.80-2.40); PHOSPHORUS 3.9 mg/dL (2.5-4.9)
[2022-05-07 11:40] VITALS: BP 121/70
[2022-05-07 15:10] VITALS: BP 146/73
[2022-05-07 20:00] VITALS: BP_SYST 122; BP_SYST 144; BP_DIAS 56; BP_DIAS 78
[2022-05-07] MEDS: ATORVASTATIN CALCIUM 20 MG TABLET PO SCH (20:35)
[2022-05-07] MEDS: FLUoxetine HCL 20 MG/5 ML SOLUTION UDCUP PEG SCH (20:36)
[2022-05-08] VITALS (7 sets, daily range): BP systolic 131–156; BP diastolic 69–88
[2022-05-08] MEDS: HEPARIN SODIUM,PORCINE 5,000 UNITS/ML VIAL SQ SCH ×4 (00:50→23:51)
[2022-05-08] MEDS: MetroNIDAZOLE 500 MG TABLET GT SCH ×4 (00:50→23:51)
[2022-05-08] MEDS: CefTRIAXone 1 GM/DEXTROSE 50 ML IV SCH (05:19)
[2022-05-08] MEDS: SODIUM CHLORIDE 0.9% 1,000 ML IV SCH ×2 (05:20→16:21)
[2022-05-08 06:44] LABS: EOSINOPHILS % (AUTO) 4.3 % (1.0-6.0); HEMATOCRIT 41.7 % (41-53); LYMPHOCYTES # (AUTO) 2.6 K/uL (1.0-4.8); LYMPHOCYTES % (AUTO) 17.4 % (22.0-44.0); MEAN CORPUSCULAR HEMOGLOBIN 27.9 pg (26.0-34.0); MEAN CORPUSCULAR HGB CONC 33.6 G/dL (31.0-37.0); MEAN CORPUSCULAR VOLUME 83 fL (80-100); MONOCYTES # (AUTO) 1.4 K/uL (0.1-1.0); MONOCYTES % (AUTO) 9.6 % (2.0-9.0); NEUTROPHILS # (AUTO) 10.2 K/uL (1.8-7.7); NEUTROPHILS % (AUTO) 67.7 % (40.0-70.0); PLATELET COUNT (AUTO) 503 K/uL (150-450); RED BLOOD CELL COUNT(AUTO) 5.02 MIL/uL (4.50-5.90); RED CELL DISTRIBUTION WIDTH 13.8 % (11.5-14.5)
[2022-05-08] MEDS: OXYGEN THERAPY IH SCH ×2 (08:00→20:00)
[2022-05-08] MEDS: MULTIVITAMINS WITH MINERALS, THERAPEUTIC 15 ML UDCUP PEG SCH (08:09)
[2022-05-08] MEDS: CLOPIDOGREL BISULFATE 75 MG TABLET PEG SCH (08:09)
[2022-05-08] MEDS: ASPIRIN 81 MG CHEWABLE TABLET PEG SCH (08:09)
[2022-05-08] MEDS: THIAMINE 100 MG/ML 2 ML VIAL IM SCH (08:10)
[2022-05-08] MEDS: MAALOX/LIDOCAINE/NYSTATIN SUSP 5 ML ORAL.SYG PO SCH ×2 (08:10→20:54)
[2022-05-08] MEDS: DOCUSATE SODIUM 100 MG/10 ML LIQUID UDCUP PEG SCH ×2 (08:14→21:00)
[2022-05-08] MEDS ORDERED: CLOPIDOGREL BISULFATE 75 MG TABLET NG SCH (09:00)
[2022-05-08] MEDS: FLUoxetine HCL 20 MG/5 ML SOLUTION UDCUP PEG SCH (20:54)
[2022-05-08] MEDS: ATORVASTATIN CALCIUM 20 MG TABLET PEG SCH (20:54)
[2022-05-09] MEDS: SODIUM CHLORIDE 0.9% 1,000 ML IV SCH (02:17)
[2022-05-09 04:37] VITALS: BP 154/83
[2022-05-09] MEDS: CefTRIAXone 1 GM/DEXTROSE 50 ML IV SCH (06:01)
[2022-05-09 07:57] VITALS: BP 148/92
[2022-05-09] MEDS: OXYGEN THERAPY IH SCH ×2 (08:00→20:21)
[2022-05-09] MEDS: MAALOX/LIDOCAINE/NYSTATIN SUSP 5 ML ORAL.SYG PO SCH ×2 (08:40→20:22)
[2022-05-09] MEDS: ASPIRIN 81 MG CHEWABLE TABLET PEG SCH (08:42)
[2022-05-09] MEDS: THIAMINE 100 MG/ML 2 ML VIAL IM SCH (08:43)
[2022-05-09] MEDS: HEPARIN SODIUM,PORCINE 5,000 UNITS/ML VIAL SQ SCH (08:44)
[2022-05-09] MEDS: CLOPIDOGREL BISULFATE 75 MG TABLET PEG SCH (08:44)
[2022-05-09] MEDS: MetroNIDAZOLE 500 MG TABLET GT SCH ×2 (08:44→17:02)
[2022-05-09] MEDS: MULTIVITAMINS WITH MINERALS, THERAPEUTIC 15 ML UDCUP PEG SCH (08:45)
[2022-05-09] MEDS: DOCUSATE SODIUM 100 MG/10 ML LIQUID UDCUP PEG SCH ×2 (08:45→20:22)
[2022-05-09 11:39] VITALS: BP 141/78
[2022-05-09] MEDS: APIXABAN 5 MG TABLET PO SCH ×2 (12:29→20:22)
[2022-05-09 16:02] VITALS: BP 146/80
[2022-05-09 20:02] VITALS: BP 146/83
[2022-05-09] MEDS: FLUoxetine HCL 20 MG/5 ML SOLUTION UDCUP PEG SCH (20:22)
[2022-05-09] MEDS: ATORVASTATIN CALCIUM 20 MG TABLET PEG SCH (20:22)
[2022-05-09 23:54] VITALS: BP 144/79
[2022-05-10] MEDS: MetroNIDAZOLE 500 MG TABLET GT SCH ×2 (00:14→08:25)
[2022-05-10 05:22] VITALS: BP 141/79
[2022-05-10] MEDS: CefTRIAXone 1 GM/DEXTROSE 50 ML IV SCH (05:30)
[2022-05-10 07:25] VITALS: BP 124/80
[2022-05-10 07:26] LABS: EOSINOPHILS % (AUTO) 4.2 % (1.0-6.0); HEMOGLOBIN 14.5 g/dL (13.5-17.5); LYMPHOCYTES # (AUTO) 2.5 K/uL (1.0-4.8); LYMPHOCYTES % (AUTO) 17.1 % (22.0-44.0); MEAN CORPUSCULAR HEMOGLOBIN 28.2 pg (26.0-34.0); MEAN CORPUSCULAR HGB CONC 33.8 G/dL (31.0-37.0); MEAN CORPUSCULAR VOLUME 83 fL (80-100); MONOCYTES # (AUTO) 1.5 K/uL (0.1-1.0); MONOCYTES % (AUTO) 10.1 % (2.0-9.0); NEUTROPHILS # (AUTO) 9.9 K/uL (1.8-7.7); NEUTROPHILS % (AUTO) 67.6 % (40.0-70.0); PLATELET COUNT (AUTO) 617 K/uL (150-450); RED BLOOD CELL COUNT(AUTO) 5.16 MIL/uL (4.50-5.90); RED CELL DISTRIBUTION WIDTH 14.2 % (11.5-14.5)
[2022-05-10] MEDS: OXYGEN THERAPY IH SCH ×2 (08:00→20:00)
[2022-05-10 08:03] LABS: ANION GAP 7 mmol/L (8-16); C-REACTIVE PROTEIN QUANT 5.06 mg/dL (0.00-0.30); CALCIUM, TOTAL 9.2 mg/dL (8.8-10.5); CARBON DIOXIDE 27 mmol/L (22-29); CHLORIDE 101 mmol/L (98-107); CREATININE 0.74 mg/dL (0.60-1.30); GLUCOSE,RANDOM 118 mg/dL (70-110); POTASSIUM 4.1 mmol/L (3.5-5.1); SODIUM SERUM 135 mmol/L (136-145); UREA NITROGEN, BLOOD 11 mg/dL (7-18)
[2022-05-10 08:09] LABS: GLOMERULAR FILTR. RATE CALC > 60 mL/min (>60)
[2022-05-10] MEDS: APIXABAN 5 MG TABLET PO SCH ×2 (08:24→20:48)
[2022-05-10] MEDS: MULTIVITAMINS WITH MINERALS, THERAPEUTIC 15 ML UDCUP PEG SCH (08:24)
[2022-05-10] MEDS: DOCUSATE SODIUM 100 MG/10 ML LIQUID UDCUP PEG SCH ×2 (08:24→20:48)
[2022-05-10] MEDS: THIAMINE 100 MG/ML 2 ML VIAL IM SCH (08:25)
[2022-05-10] MEDS: MAALOX/LIDOCAINE/NYSTATIN SUSP 5 ML ORAL.SYG PO SCH ×2 (09:00→20:48)
[2022-05-10 12:04] VITALS: BP 118/66
[2022-05-10 16:03] VITALS: BP 134/82
[2022-05-10 20:22] VITALS: BP 131/82
[2022-05-10] MEDS: ATORVASTATIN CALCIUM 20 MG TABLET PEG SCH (20:48)
[2022-05-10] MEDS: FLUoxetine HCL 20 MG/5 ML SOLUTION UDCUP PEG SCH (20:48)
[2022-05-10 23:47] VITALS: BP 124/87
[2022-05-11 04:03] VITALS: BP 123/83
[2022-05-11 07:34] VITALS: BP 146/79
[2022-05-11] MEDS: OXYGEN THERAPY IH SCH ×2 (08:00→21:49)
[2022-05-11] MEDS: APIXABAN 5 MG TABLET PO SCH ×2 (09:57→20:26)
[2022-05-11] MEDS: DOCUSATE SODIUM 100 MG/10 ML LIQUID UDCUP PEG SCH ×2 (09:57→20:26)
[2022-05-11] MEDS: MAALOX/LIDOCAINE/NYSTATIN SUSP 5 ML ORAL.SYG PO SCH ×2 (09:57→20:27)
[2022-05-11] MEDS: MULTIVITAMINS WITH MINERALS, THERAPEUTIC 15 ML UDCUP PEG SCH (09:57)
[2022-05-11] MEDS: THIAMINE 100 MG/ML 2 ML VIAL IM SCH (09:57)
[2022-05-11 11:13] VITALS: BP 120/76
[2022-05-11 15:21] VITALS: BP 121/77
[2022-05-11 19:10] VITALS: BP 112/78
[2022-05-11] MEDS: ATORVASTATIN CALCIUM 20 MG TABLET PEG SCH (20:26)
[2022-05-11] MEDS: FLUoxetine HCL 20 MG/5 ML SOLUTION UDCUP PEG SCH (20:26)
[2022-05-11 23:15] VITALS: BP 121/78
[2022-05-12 04:00] VITALS: BP 118/70
[2022-05-12] MEDS: OXYGEN THERAPY IH SCH (08:00)
[2022-05-12 08:21] VITALS: BP 140/68
[2022-05-12] MEDS: THIAMINE 100 MG/ML 2 ML VIAL IM SCH (08:39)
[2022-05-12] MEDS: APIXABAN 5 MG TABLET PO SCH (08:40)
[2022-05-12] MEDS: DOCUSATE SODIUM 100 MG/10 ML LIQUID UDCUP PEG SCH (08:40)
[2022-05-12] MEDS: MULTIVITAMINS WITH MINERALS, THERAPEUTIC 15 ML UDCUP PEG SCH (08:40)
[2022-05-12] MEDS: MAALOX/LIDOCAINE/NYSTATIN SUSP 5 ML ORAL.SYG PO SCH (08:41)
[2022-05-12] MEDS ORDERED: TAMSULOSIN HCL 0.4 MG CAPSULE PEG SCH (09:00)
[2022-05-12 11:56] VITALS: BP 132/79
[2022-05-12 15:35] VITALS: BP 116/82
[2022-05-12 16:30] LABS: COVID AG,FIA SOURCE NASOPHARYNGEAL
[2022-05-16] MEDS ORDERED: APIXABAN 5 MG TABLET PO SCH (09:00)
== END 2022-05-12 18:45 | DRG 871 ==
LOC: EMS 17:24 → 5S 20:42 → 6N 04-29 10:45 → 5S 05-04 23:44
PROVIDERS: ADMIT Internal Medicine; ATTEND Internal Medicine
PROC: 4A00X4Z Measurement of Central Nervous Electrical Activity, External Approach (ICD-10-PCS; 2022-04-28)
PROC: 0DH63UZ Insertion of Feeding Device into Stomach, Percutaneous Approach (ICD-10-PCS; 2022-05-05)
PROC: 3E0G76Z Introduction of Nutritional Substance into Upper GI, Via Natural or Artificial Opening (ICD-10-PCS; 2022-05-05)
PROC: 0DB68ZX Excision of Stomach, Via Natural or Artificial Opening Endoscopic, Diagnostic (ICD-10-PCS; principal; 2022-05-05 06:40)
DX: A41.9 Sepsis, unspecified organism (principal); G93.41 Metabolic encephalopathy; I63.9 Cerebral infarction, unspecified; N17.9 Acute kidney failure, unspecified; I82.403 Acute embolism and thrombosis of unspecified deep veins of lower extremity, bilateral; K57.32 Diverticulitis of large intestine without perforation or abscess without bleeding; M62.82 Rhabdomyolysis; Q21.12 Patent foramen ovale; Z20.822 Contact with and (suspected) exposure to COVID-19; D58.0 Hereditary spherocytosis; E66.9 Obesity, unspecified; E86.0 Dehydration; E87.6 Hypokalemia; F20.9 Schizophrenia, unspecified; L55.1 Sunburn of second degree; K29.60 Other gastritis without bleeding; R56.9 Unspecified convulsions; R13.10 Dysphagia, unspecified; F99 Mental disorder, not otherwise specified; R65.20 Severe sepsis without septic shock; Z91.14 Patient's other noncompliance with medication regimen; Z88.0 Allergy status to penicillin; Z68.33 Body mass index [BMI] 33.0-33.9, adult; Z90.81 Acquired absence of spleen; Z91.199 Patient's noncompliance with other medical treatment and regimen due to unspecified reason
CPT/HCPCS: 70450; 70551; 71045; 71250; 72192; 74150; 80048; 80053; 80061; 81001; 82140; 82550; 82570; 83605; 83735; 83880; 84100; 84132; 84145; 84300; 84443; 84484; 85025; 86038; 86140; 87040; 87081; 92507; 92526; 92610; 93005; 93306; 93312; 93970; 95816; 97112; 97116; 97162; 97167; 97530; 97535; 99285; G0378; G0480; J0696; J0712; J1644; J1956; J2250; J2704; J3010; J3411; J3480; J3490; J7030; J7050; J7060; J7120; 36415-L1; 36415-TC; Z7610